=== PATIENT | male | born 1975 | race Caucasian/White ===

== ENCOUNTER 2017-06-17 00:20 | Observation (INO) | payer MEDICARE, OTHER ==
--- NOTE | 2017-06-17 00:58 | PDOC ---
History of Present Illness - General History Source: Patient Exam Limitations: No Limitations <Vicente Neal - Last Filed: 06/17/17 01:07> - General History Source: Patient Exam Limitations: No Limitations <Nati Oneal - Last Filed: 06/17/17 01:44> - General Chief Complaint: Palpitations Stated Complaint: PALPITATION/CHEST PAIN Time Seen by Provider: 06/17/17 00:45 - History of Present Illness Initial Comments: 06/17/17 01:07 The patient is a 41 year old male, with a significant past medical history of hypertension and hyperlipidemia, who presents to the emergency department with palpitations since earlier this evening. Patient reports his heart began to race at approximately 23:00 after taking a few puffs of weed. The patient reports his symptoms lasted approximately an hour and have resolved. He denies any associated chest pain, shortness of breath, diaphoresis, or lower extremity edema. The patient reports similar episodes in the past after smoking weed, but states he has had sudden episodes of palpitations without any triggering factors. Patient reports his last episode was about a month ago and resolved after splashing cold water on his face. He denies any abdominal pain, nausea, or vomiting. He denies any fever, chills, headache, dizziness, or lightheadedness Patient reports his father had a cardiac history in his 60s. Patient reports he has never been evaluated by a Housing Management Officer and is not on any blood thinners. Allergies: NKDA Past Surgical History: None reported Social History: Marijuana use. No tobacco use. No ETOH or other illicit drug use. PCP: Dr. Thomas (Vicente Neal) Past History <Vicente Neal - Last Filed: 06/17/17 01:07> - Past Medical History HTN: Yes Hypercholesterolemia: Yes - Suicide/Smoking/Psychosocial Hx Smoking History: Current some day smoker Have you smoked in the past 12 months: Yes Number of Cigarettes Smoked Daily: 0 Information on smoking cessation initiated: No Hx Alcohol Use: Yes Drug/Substance Use Hx: Yes (Marijuana) Substance Use Type: Marijuana <Nati Oneal - Last Filed: 06/17/17 01:44> - Past Medical History Allergies/Adverse Reactions: Allergies Allergy/AdvReac Type Severity Reaction Status Date / Time Cashews Allergy Uncoded 06/17/17 00:34 Pecans Allergy Uncoded 06/17/17 00:34 Walnuts Allergy Uncoded 06/17/17 00:34 Home Medications: Ambulatory Orders NK [No Known Home Medication] 06/15/14 Review of Systems - Review of Systems Able to Perform ROS?: Yes <Vicente Neal - Last Filed: 06/17/17 01:07> <Nati Oneal - Last Filed: 06/17/17 01:44> - Review of Systems Comments:: 06/17/17 01:07 GENERAL/CONSTITUTIONAL: No fever or chills. No weakness. HEAD, EYES, EARS, NOSE AND THROAT: No change in vision. No ear pain or discharge. No sore throat. CARDIOVASCULAR: +Palpitations. No chest pain or shortness of breath. RESPIRATORY: No cough, wheezing, or hemoptysis. GASTROINTESTINAL: No nausea, vomiting, diarrhea or constipation. GENITOURINARY: No dysuria, frequency, or change in urination. MUSCULOSKELETAL: No joint or muscle swelling or pain. No neck or back pain. SKIN: No rash NEUROLOGIC: No headache, vertigo, loss of consciousness, or change in strength/ sensation. ENDOCRINE: No increased thirst. No abnormal weight change. HEMATOLOGIC/LYMPHATIC: No anemia, easy bleeding, or history of blood clots. ALLERGIC/IMMUNOLOGIC: No hives or skin allergy. (Vicente Neal) *Physical Exam <Vicente Neal - Last Filed: 06/17/17 01:07> <Nati Oneal - Last Filed: 06/17/17 01:44> - Vital Signs Last Vital Signs Temp Pulse Resp BP Pulse Ox 97.7 F 125 H 19 135/100 100 06/17/17 00:24 06/17/17 00:24 06/17/17 00:24 06/17/17 00:24 06/17/17 00:24 - Physical Exam Comments: 06/17/17 01:08 GENERAL: Awake, alert, and fully oriented, in no acute distress HEAD: No signs of trauma EYES: PERRLA, EOMI, sclera anicteric, conjunctiva clear ENT: Auricles normal inspection, hearing grossly normal, nares patent. Moist mucosa NECK: Normal ROM, supple, no lymphadenopathy, JVD, or masses LUNGS: Breath sounds equal, clear to auscultation bilaterally. No wheezes, and no crackles HEART: Regular rate and rhythm, normal S1 and S2, no murmurs, rubs or gallops ABDOMEN: Soft, nontender, normoactive bowel sounds. No guarding, no rebound. No masses EXTREMITIES: Normal range of motion, no edema. No clubbing or cyanosis. No cords, erythema, or tenderness. DP/PT pulses 2+ and symmetric. NEUROLOGICAL: Moves all extremities. Normal speech, normal gait SKIN: Warm, Dry, normal turgor, no rashes or lesions noted. (Vicente Neal) Heart Score/ECG Review #2 ECG reviewed & interpreted by me at: 01:44 General ECG Interpretation: Sinus Rhythm, Normal Rate (75), Normal Intervals, No acute ischemic changes Compared to previous ECG there are: Other (afib with rvr 148bpm) <Nati Oneal - Last Filed: 06/17/17 01:44> ED Treatment Course - LABORATORY CBC & Chemistry Diagram: 06/17/17 00:46 06/17/17 00:46 <Vicente Neal - Last Filed: 06/17/17 01:07> - LABORATORY CBC & Chemistry Diagram: 06/17/17 00:46 06/17/17 00:46 <Nati Oneal - Last Filed: 06/17/17 01:44> - ADDITIONAL ORDERS Additional order review: 06/17/17 00:46 RBC 5.64 H MCV 89.9 MCHC 35.1 RDW 13.5 MPV 8.7 Neutrophils % 64.1 D Lymphocytes % 23.0 D Monocytes % 9.8 Eosinophils % 2.0 Basophils % 1.1 - RADIOLOGY Radiology Studies Ordered: Category Date Time Status CHEST X-RAY PORTABLE* [RAD] Stat Radiology 06/17/17 00:47 Ordered Medical Decision Making <Vicente Neal - Last Filed: 06/17/17 01:07> <Nati Oneal - Last Filed: 06/17/17 01:44> - Medical Decision Making 06/17/17 00:56 41-year-old male no known past medical history here today complaining of palpitations or racing heartbeat after smoking weed. 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 Patient currently states symptoms have resolved Meliza loss of 1 hour On exam he is awake alert no acute distress his heart rate is now in the 80s cardiac and lung exam is unremarkable heart is regular without any murmurs rubs or gallops peripheral extremities have no edema Plan rule out electrolyte abnormality ACS were infection due to concerns for A. fib on the initial EKG with a heart rate of 148 concerns for paroxysmal A. fib likely require telemetry monitoring admission CBC lites troponin aspirin and chest x-ray (Nati Oneal) *DC/Admit/Observation/Transfer <Vicente Neal - Last Filed: 06/17/17 01:07> <Nati Oneal - Last Filed: 06/17/17 01:44> Diagnosis at time of Disposition: Atrial fibrillation with RVR - Discharge Dispostion Condition at time of disposition: Guarded - Referrals Referrals: Osmani Thomas MD [Primary Care Provider] - - Patient Instructions - Post Discharge Activity - Attestations Scribe Attestion: 06/17/17 01:08 Documentation prepared by Vicente Neal, acting as medical record specialist for Nati Oneal MD. (Vicente Neal)
[2017-06-17 01:09] LABS: BASO % 1.1 % (0-2.0); HEMATOCRIT 50.7 % (35.4-49); HEMOGLOBIN 17.8 GM/dL (11.7-16.9); MCH 31.5 pg (25.7-33.7); MCHC 35.1 g/dl (32.0-35.9); MEAN CELL VOLUME 89.9 fl (80-96); MEAN PLT VOLUME 8.7 fl (7.5-11.1); MONO % 9.8 % (3.8-10.2); NEUT % 64.1 % (42.8-82.8); PLATELET COUNT 200 K/MM3 (134-434); RBC 5.64 M/mm3 (4.00-5.60); RDW 13.5 % (11.9-15.9); WHITE BLOOD COUNT 6.9 K/mm3 (4.0-10.0)
[2017-06-17 01:48] LABS: ALBUMIN 4.5 g/dl (3.4-5.0); ANION GAP 10 (8-16); BILIRUBIN,TOTAL 0.4 mg/dL (0.2-1.0); BLOOD UREA NITROGEN 20 mg/dL (7-18); CALCIUM 9.4 mg/dL (8.5-10.1); CHLORIDE 107 mmol/L (98-107); CO2 26 mmol/L (21-32); CREATININE 1.1 mg/dL (0.7-1.3); GLUCOSE,RANDOM 110 mg/dL (74-106); POTASSIUM 3.9 mmol/L (3.5-5.1); SGOT/AST 22 U/L (15-37); SGPT/ALT 34 U/L (12-78); SODIUM 143 mmol/L (136-145); TOT PROT 7.7 g/dl (6.4-8.2)
[2017-06-17 01:51] LABS: ALK PHOS 98 U/L (45-117)
[2017-06-17] MEDS ORDERED: ASPIRIN 81 MG CHEWABLE TABLETS PO ONE (01:52)
--- NOTE | 2017-06-17 02:25 | PDOC ---
*Physical Exam - Vital Signs Last Vital Signs Temp Pulse Resp BP Pulse Ox 97.7 F 125 H 19 135/100 100 06/17/17 00:24 06/17/17 00:24 06/17/17 00:24 06/17/17 00:24 06/17/17 00:24 ED Treatment Course - LABORATORY CBC & Chemistry Diagram: 06/17/17 00:46 06/17/17 00:46 - ADDITIONAL ORDERS Additional order review: Laboratory Results 06/17/17 00:46 Sodium 143 Potassium 3.9 Chloride 107 Carbon Dioxide 26 Anion Gap 10 BUN 20 H Creatinine 1.1 D Creat Clearance w eGFR > 60 Random Glucose 110 H D Calcium 9.4 Total Bilirubin 0.4 AST 22 D ALT 34 D Alkaline Phosphatase 98 Troponin I < 0.02 Total Protein 7.7 Albumin 4.5 TSH 1.89 06/17/17 00:46 RBC 5.64 H MCV 89.9 MCHC 35.1 RDW 13.5 MPV 8.7 Neutrophils % 64.1 D Lymphocytes % 23.0 D Monocytes % 9.8 Eosinophils % 2.0 Basophils % 1.1 Medical Decision Making - Medical Decision Making 06/17/17 02:23 I received this patient is cyanotic to a.m. Briefly he is a 41-year-old male who presents emergency department with palpitations status post smoking marijuana. Patient states he has previously had these symptoms, but they resolved after splashing cold water on his face. Currently he feels that his heart is racing. Initial EKG demonstrates atrial fibrillation with a rate of 140s. EKGs repeated, now in sinus rhythm, rate of 80 bpm Patient initial troponin negative. Awaiting chest x-ray. Call placed to hospitalist. Will place on observation to telemetry *DC/Admit/Observation/Transfer Diagnosis at time of Disposition: Atrial fibrillation with RVR - Discharge Dispostion Condition at time of disposition: Stable Admit: Yes - Referrals Referrals: Osmani Thomas MD [Primary Care Provider] - - Patient Instructions - Post Discharge Activity
--- NOTE | 2017-06-17 02:40 | HP ---
CHIEF COMPLAINT: palpitations PCP: Martha HISTORY OF PRESENT ILLNESS: This is a 41 year old male with a past medical history of borderline HTN who presented to the ED with palpitations and sensation of heart racing after taking 2 puffs of marijuana around 11pm. Palpitations spontaneously resolved shortly after pt arrived. Pt denies any CP with palpitations. Pt reports a similar episode of palpitations about 6 months ago while he was at work (no marijuana was involved) which resolved after splashing cold water on his face and coughing a few times. He did not seek medical care at that time. He underwent a stress test approximately 2 years ago which he reports as normal for similar symptoms. He reports having palpitations off and on since he was young. ER course was notable for: (1) initial ECG revealed afib with RVR, rate 148 (2) trop neg Recent Travel: pt denies PAST MEDICAL HISTORY: borderline HTN (controlled with diet and exercise, on no meds), denies ever being told he had HLD PAST SURGICAL HISTORY: basal cell skin CA removed under left breast Social History: Smoking: pt denies Alcohol: pt denies Drugs: smokes 2-3 puffs marijuana every night before bed Family History: father had CABG in his 60s mother with h/o DM, RA, HTN 2 brothers and 1 daughter alive and well Allergies Cashews Allergy (Uncoded 06/17/17 00:34) Pecans Allergy (Uncoded 06/17/17 00:34) Walnuts Allergy (Uncoded 06/17/17 00:34) HOME MEDICATIONS: 3 Medication Instructions Recorded NK [No Known Home Medication] 06/15/14 REVIEW OF SYSTEMS CONSTITUTIONAL: Absent: fever, chills, diaphoresis, generalized weakness, malaise, loss of appetite, weight change HEENT: Absent: rhinorrhea, nasal congestion, throat pain, throat swelling, difficulty swallowing, mouth swelling, ear pain, eye pain, visual changes CARDIOVASCULAR: Present: palpitations, irregular heart rate Absent: chest pain, syncope, lightheadedness, peripheral edema RESPIRATORY: Absent: cough, shortness of breath, dyspnea with exertion, orthopnea, wheezing, stridor, hemoptysis GASTROINTESTINAL: Absent: abdominal pain, abdominal distension, nausea, vomiting, diarrhea, constipation, melena, hematochezia GENITOURINARY: Absent: dysuria, frequency, urgency, hesitancy, hematuria, flank pain, genital pain MUSCULOSKELETAL: Absent: myalgia, arthralgia, joint swelling, back pain, neck pain SKIN: Absent: rash, itching, pallor HEMATOLOGIC/IMMUNOLOGIC: Absent: easy bleeding, easy bruising, lymphadenopathy, frequent infections ENDOCRINE: Absent: unexplained weight gain, unexplained weight loss, heat intolerance, cold intolerance NEUROLOGIC: Absent: headache, focal weakness or paresthesias, dizziness, unsteady gait, seizure, mental status changes, bladder or bowel incontinence PSYCHIATRIC: Absent: anxiety, depression, suicidal or homicidal ideation, hallucinations. PHYSICAL EXAMINATION Vital Signs - 24 hr 3 06/17/17 00:24 Temperature 97.7 F Pulse Rate 125 H Respiratory 19 Rate Blood Pressure 135/100 O2 Sat by Pulse 100 Oximetry (%) GENERAL: Awake, alert, and fully oriented, in no acute distress. HEAD: Normal with no signs of trauma. EYES: Pupils equal, round and reactive to light, extraocular movements intact, sclera anicteric, conjunctiva clear. No lid lag. EARS, NOSE, THROAT: Ears normal, nares patent, oropharynx clear without exudates. Moist mucous membranes. NECK: Normal range of motion, supple without lymphadenopathy, JVD, or masses. LUNGS: Breath sounds equal, clear to auscultation bilaterally. No wheezes, and no crackles. No accessory muscle use. HEART: Regular rate and rhythm, normal S1 and S2 without murmur, rub or gallop. ABDOMEN: Soft, nontender, not distended, normoactive bowel sounds, no guarding, no rebound, no masses. No hepatomegaly or splenomegaly. MUSCULOSKELETAL: Normal range of motion at all joints. No bony deformities or tenderness. No CVA tenderness. UPPER EXTREMITIES: 2+ pulses, warm, well-perfused. No cyanosis. No clubbing. No peripheral edema. LOWER EXTREMITIES: 2+ pulses, warm, well-perfused. No calf tenderness. No peripheral edema. NEUROLOGICAL: Cranial nerves II-XII intact. Normal speech. Normal gait. PSYCHIATRIC: Cooperative. Good eye contact. Appropriate mood and affect. SKIN: Warm, dry, normal turgor, no rashes or lesions noted, normal capillary refill. Laboratory Results - last 24 hr 3 06/17/17 06/17/17 00:46 00:46 WBC 6.9 RBC 5.64 H Hgb 17.8 H D Hct 50.7 H MCV 89.9 MCH 31.5 MCHC 35.1 RDW 13.5 Plt Count 200 MPV 8.7 Neutrophils % 64.1 D Lymphocytes % 23.0 D Monocytes % 9.8 Eosinophils % 2.0 Basophils % 1.1 Sodium 143 Potassium 3.9 Chloride 107 Carbon Dioxide 26 Anion Gap 10 BUN 20 H Creatinine 1.1 D Creat Clearance w eGFR > 60 Random Glucose 110 H D Calcium 9.4 Total Bilirubin 0.4 AST 22 D ALT 34 D Alkaline Phosphatase 98 Troponin I < 0.02 Total Protein 7.7 Albumin 4.5 TSH 1.89 ECG 06/17/17 00:29:03 atrial fibrillation with RVR vent rate 148, QTC [address] abnormality 06/17/17 01:19:36 NSR vent rate 75, QTC [address]/T changes ASSESSMENT/PLAN: 41yM with PMH borderline HTN presented to the ED with palpitation and heart racing. New onset afib - resolved spontaneously - continuous cardiac monitoring - consider starting beta tammy, archana if BP remains elevated - cardiology consult - [id number] score of 1, will hold off on AC for now, given ASA in ED, cont ASA 325mg daily - echo ordered, may be done as outpatient if unavailable tomorrow HTN - cont to monitor BP, start Beta tammy if remains elevated DVT PPX - heparin deferred, anticipated LOS <48h FEN - tolerating po - BMP in am - low sodium diet as tolerated Dispo: Pt currently requires further observation for management of his emergent condition. Visit type - Emergency Visit Emergency Visit: Yes ED Registration Date: 06/17/17 Care time: The patient presented to the Emergency Department on the above date and was hospitalized for further evaluation of their emergent condition. - New Patient This patient is new to me today: Yes Date on this admission: 06/17/17 - Critical Care Critical Care patient: No Hospitalist Screening - Colonoscopy Questionnaire Colonoscopy Questionnaire: Colonoscopy Questionnaire - Patient: 50 - 75 years old and never had a screening colonoscopy: No History of colon or rectal polyps, or CA: No History of IBD, Crohn's disease or UC: No History of abdominal radiation therapy as a child: No - Relative: 1 with colon or rectal CA, or polyps at age 60 or younger: No Colon or rectal CA diagnosed at age 45 or younger: No Multiple relatives with colon or rectal CA: No - Outcome: Screening Result: Negative Screen
[2017-06-17 05:12] VITALS: BMI 24.9
[2017-06-17 08:08] LABS: BASO % 0.6 % (0-2.0); EOS % 0.7 % (0-4.5); HEMATOCRIT 47.2 % (35.4-49); HEMOGLOBIN 16.3 GM/dL (11.7-16.9); LYMPH % 20.8 % (8-40); MCH 31.6 pg (25.7-33.7); MCHC 34.5 g/dl (32.0-35.9); MEAN CELL VOLUME 91.5 fl (80-96); MEAN PLT VOLUME 8.7 fl (7.5-11.1); MONO % 8.5 % (3.8-10.2); NEUT % 69.4 % (42.8-82.8); PLATELET COUNT 196 K/MM3 (134-434); RBC 5.16 M/mm3 (4.00-5.60); RDW 13.3 % (11.9-15.9); WHITE BLOOD COUNT 7.8 K/mm3 (4.0-10.0)
[2017-06-17 08:21] LABS: ANION GAP 8 (8-16); BLOOD UREA NITROGEN 18 mg/dL (7-18); CALCIUM 9.2 mg/dL (8.5-10.1); CHLORIDE 106 mmol/L (98-107); CO2 28 mmol/L (21-32); GLUCOSE,RANDOM 98 mg/dL (74-106); MAGNESIUM 2.3 mg/dL (1.8-2.4); PHOSPHOROUS 4.9 mg/dL (2.5-4.9); POTASSIUM 4.5 mmol/L (3.5-5.1); SODIUM 142 mmol/L (136-145)
[2017-06-17] MEDS ORDERED: ASPIRIN 325 MG TABLET PO SCH (10:00)
--- NOTE | 2017-06-17 12:23 | CON.CARD ---
Consult Consult Specialty:: Cardiology Referred by:: Benito Cantu Reason for Consultation:: Afib - History of Present Illness Chief Complaint: palpitations History of Present Illness: 41 year old male with no past medical history except borderline htn in past which normalized after lost weight last year presents with palpitations/racing HR after smoking marijuana. Lasted an hour so came to ER. No chest pain or sob. No pnd, orthopnea, or edema. Reports similar event 6 months ago. Feels fine at this time. Reports bp at home 120s/70-low 80s. Initial EKG Afib with VR 148bpm, nl axis, nonspecific T wave abnormalities EKG 2: sinus rhythm at 75bpm, nl axis, nl st segments Reports 2 years ago had echo/stress test and was told normal - History Source History Provided By: Patient, Medical Record - Alcohol/Substance Use Hx Alcohol Use: Yes - Smoking History Smoking history: Current some day smoker Have you smoked in the past 12 months: Yes Aproximately how many cigarettes per day: 0 Home Medications - Allergies Allergies/Adverse Reactions: Allergies Allergy/AdvReac Type Severity Reaction Status Date / Time cashew nut Allergy Verified 06/17/17 04:47 pecan nut Allergy Verified 06/17/17 04:47 walnut Allergy Verified 06/17/17 04:47 Cashews Allergy Uncoded 06/17/17 00:34 Pecans Allergy Uncoded 06/17/17 00:34 Walnuts Allergy Uncoded 06/17/17 00:34 - Home Medications Home Medications: Ambulatory Orders NK [No Known Home Medication] 06/15/14 Vital Signs: Vital Signs Temperature 99.2 F 06/17/17 04:39 Pulse Rate 74 06/17/17 04:39 Respiratory Rate 20 06/17/17 04:39 Blood Pressure 113/72 06/17/17 04:39 O2 Sat by Pulse Oximetry (%) 99 06/17/17 04:39 Constitutional: Yes: No Distress Neck: Yes: WNL Respiratory: Yes: WNL Gastrointestinal: Yes: Normal Bowel Sounds, Soft Cardiovascular: Yes: Regular Rate and Rhythm JVD: No Carotid Bruit: No PMI: Non-Displaced Heart Sounds: Yes: S1, S2 Murmur: No: Systolic Murmur Edema: No - Other Data Labs, Other Data: CBC, BMP 06/17/17 06:00 06/17/17 06:00 Troponin, BNP 06/17/17 06/17/17 00:46 06:00 Troponin I < 0.02 < 0.02 Troponin, BNP 06/17/17 06/17/17 00:46 06:00 Troponin I < 0.02 < 0.02 Imaging - Results Chest X-ray: Report Reviewed EKG: Image Reviewed Problem List - Problems (1) Atrial fibrillation with RVR Code(s): I48.91 - UNSPECIFIED ATRIAL FIBRILLATION Assessment/Plan 41 year old male with no past medical history except borderline htn in past which normalized after lost weight last year presents with palpitations/racing HR after smoking marijuana. Lasted an hour so came to ER. No chest pain or sob. No pnd, orthopnea, or edema. Reports similar event 6 months ago. Feels fine at this time. Reports bp at home 120s/70-low 80s. Initial EKG Afib with VR 148bpm, nl axis, nonspecific T wave abnormalities EKG 2: sinus rhythm at 75bpm, nl axis, nl st segments Reports 2 years ago had echo/stress test and was told normal 1) Paroxysmal afib -TSH normal CE's neg -If bp is normal as he reports at home and last two measurements than would just have patient follow up as outpatient for echocardiogram and DC on aspirin and with a prescription for lopressor 25mg with instruction to take if has palpitations. If patient has htn than indication for anticoagulation with a NOAC and would put on long standing Metoprolol xl 50mg Patient should follow as outpatient and if symptoms become frequent than refer for ablation. Avoid caffeine, etoh, and drugs. Can be discharged with outpt follow up. [phone]
[2017-06-17 15:41] VITALS: BP 132/79; PULSE 66; TEMP 98.9
--- NOTE | 2017-06-17 15:43 | DS ---
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 CLEARED FOR DISCHARGE NEEDS CARDIAC F/U OUTPATIENT Constitutional: Yes: No Distress Eyes: Yes: WNL HENT: Yes: WNL Neck: Yes: WNL Cardiovascular: Yes: WNL Respiratory: Yes: WNL Gastrointestinal: Yes: WNL Renal/: Yes: WNL Musculoskeletal: Yes: WNL Extremities: Yes: WNL Edema: No Peripheral Pulses WNL: Yes Integumentary: Yes: WNL Wound/Incision: Yes: Clean/Dry, Excoriated ...Motor Strength: WNL Psychiatric: Yes: WNL Labs: CBC, BMP 06/17/17 06:00 06/17/17 06:00 Discharge Summary Reason For Visit: A FIB Current Active Problems Atrial fibrillation with RVR (Acute) Procedures: Principal: TELEMETRY/CXR Hospital Course: ADMITTED FOR AFIB/RVR, STABLE CAN F/U OUTPATIENT FOR CARDIAC WORKUP Condition: Stable - Instructions Diet, Activity, Other Instructions: SEE DR CASTELLANOS MONDAY IN 2 DAYS FOR CARDIAC WORKUP LOW SALT DIET Referrals: Osmani Castellanos MD [Primary Care Provider] - Disposition: HOME - Home Medications Comprehensive Discharge Medication List: Ambulatory Orders Aspirin [ASA -] 325 mg PO DAILY #30 tablet 06/17/17 Metoprolol Succinate [Toprol XL -] 25 mg PO DAILY #30 tab.sr.24h 06/17/17
[2017-06-17] MEDS ORDERED: metoPROLOL SUCCINATE 25 MG TAB.SR.24H (FP) PO SCH (15:45)
--- NOTE | 2017-06-17 22:23 | EKG ---
Test Reason : Blood Pressure : / mmHG Vent. Rate : 075 BPM Atrial Rate : 075 BPM P-R Int : 160 ms QRS Dur : 086 ms QT Int : 362 ms P-R-T Axes : 035 -27 044 degrees QTc Int : 404 ms NORMAL SINUS RHYTHM SEPTAL INFARCT (CITED ON OR BEFORE 15-JUN-2014) ABNORMAL ECG WHEN COMPARED WITH ECG OF 15-JUN-2014 21:13, QUESTIONABLE CHANGE IN INITIAL FORCES OF SEPTAL LEADS Confirmed by ANAI COX, DALTON ([id number]) on 06/17/2017 10:22:39 PM Referred By: Confirmed By:DALTON OSPINA MD
== END 2017-06-17 16:46 | disposition home or self-care (01) ==
LOC: JER 00:20 → JERBED 02:25 → J4W 04:08
PROVIDERS: ADMIT Internal Medicine; ATTEND Family Medicine
DX: I48.91 Unspecified atrial fibrillation (principal); I10 Essential (primary) hypertension; F17.210 Nicotine dependence, cigarettes, uncomplicated; Z85.828 Personal history of other malignant neoplasm of skin; Z91.010 Allergy to peanuts
CPT/HCPCS: 36415; 71045-TC-FY; 80048; 80053; 82550; 83735; 84100; 84443; 84484; 85025; 93005; 93010; 99285-25; G0378